=== PATIENT | female | born 1940 | race Caucasian/White ===

== ENCOUNTER → 2018-02-24 | Outpatient (CLI) | payer OTHER ==
--- NOTE | 2018-02-24 16:00 | 2DMMODE ---
[place] [address] 2 D/M-MODE ECHOCARDIOGRAM Name: SAMANTHAHARISH Richard Room: [facility]#: [id number] Admission: 02/24/18 Attend Phys: Sunitha Mendenhall NP [place] Discharge: Date of : 42 Date of Service: 02/24/18 1600 Report #: [id number] THIS REPORT FOR: //name// APPROVED REPORT Study performed: 02/24/2018 14:15:59 EXAM: Comprehensive 2D, Doppler, and color-flow Echocardiogram Patient Location: Out-Patient Status: routine BSA: 1.71 HR: 72 bpm BP: 122/70 mmHg Other Information Study Quality: Fair Technically limited study due to Breast Implants. Indications Murmur 2D Dimensions IVSd: 11.97 (7-11mm) LVOT Diam: 20.34 (18-24mm) LVDd: 38.95 mm PWd: 10.30 (7-11mm) Ascending Ao: 32.33 (22-36mm) LVDs: 30.81 (25-40mm) Aortic Root: 25.40 mm Volumes Left Atrial Volume (Systole) LA ESV Index: 17.40 mL/m2 Aortic Valve AoV Peak Richie.: 1.69 m/s AO Peak Gr.: 11.38 mmHg LVOT Max P.54 mmHg AO Mean Gr.: 5.90 mmHg LVOT Mean P.73 mmHg LVOT Max V: 0.94 m/s AO V2 VTI: 36.14 cm LVOT Mean V: 0.61 m/s MODESTA (VTI): 1.96 cm2 LVOT V1 VTI: 21.81 cm Mitral Valve E/A Ratio: 0.78 MV Decel. Time: 240.35 [place] [address] 2 D/M-MODE ECHOCARDIOGRAM Name: HARISH SINGH Room: [facility]#: [id number] Admission: 02/24/18 Attend Phys: Sunitha Mendenhall NP [place] Discharge: Date of : 42 Date of Service: 02/24/18 1600 Report #: [id number] MV E Max Richie.: 0.72 m/s MV PHT: 69.70 ms MVA (PHT): 3.16 cm2 TDI E/Lateral E': 8.00 E/Medial E': 8.00 Medial E' Richie.: 0.09 m/s Lateral E' Richie.: 0.09 m/s Pulmonary Valve PV Peak Richie.: 1.02 m/s PV Peak Gr.: 4.19 mmHg Tricuspid Valve RAP Estimate: 5.00 mmHg TR Peak Gr.: 18.02 mmHg RVSP: 23.02 mmHg PA Pressure: 23.02 mmHg Left Ventricle The left ventricle is normal size. There is normal LV segmental wall motion. There is normal left ventricular wall thickness. Left ventricular systolic function is normal. The left ventricular ejection fraction is within the normal range. LVEF is 55-60%. Grade I - abnormal relaxation pattern. Right Ventricle The right ventricle is normal size. The right ventricular systolic function is normal. Atria The left atrium size is normal. The right atrium size is normal. Aortic Valve Aortic valve is mildly calcified. No aortic regurgitation is present. There is no aortic valvular stenosis. Mitral Valve The mitral valve is normal in structure. There is no mitral valve regurgitation noted. No evidence of mitral valve stenosis. Tricuspid Valve The tricuspid valve is normal in structure. Mild tricuspid regurgitation. estimated pa pressure 30 mm Hg Pulmonic Valve The pulmonary valve is normal in structure[place] [address] 2 D/M-MODE ECHOCARDIOGRAM Name: HARISH SINGH Room: [facility]#: [id number] Admission: 02/24/18 Attend Phys: Sunitha Mendenhall NP [place] Discharge: Date of : 42 Date of Service: 02/24/18 1600 Report #: [id number] regurgitation. Great Vessels The aortic root is normal in size. IVC is normal in size and collapses >50% with inspiration. Pericardium There is no pericardial effusion. <Conclusion> LVEF is 55-60%. Aortic valve is mildly calcified. <ELECTRONICALLY SIGNED> By: Bryce Tilley MD, FACC 02/24/18 1600 1600 1600 Bryce Tilley MD, FACC /INF
== END ==
LOC: M.CRD 14:00
DX: I07.1 Rheumatic tricuspid insufficiency (principal); I35.8 Other nonrheumatic aortic valve disorders

== ENCOUNTER 2020-03-24 10:59 | Emergency (ER) | payer OTHER ==
[~2020-03-24] VITALS: Ht 154.9 cm; Wt 68.0 kg
[2020-03-24] MEDS ORDERED: FEMARA2.5 MG PO (11:10)
[2020-03-24] MEDS ORDERED: LIPITOR10 MG PO (11:11)
[2020-03-24] MEDS ORDERED: IBRANCE125 M1 PO (11:11)
[2020-03-24] MEDS ORDERED: TESSALON PERLE100 M1 PO (12:08)
[2020-03-24 12:19] VITALS: BP 130/62
== END 2020-03-24 12:21 | disposition home or self-care (01) ==
LOC: M.ERS 10:59
DX: R05 Cough (principal)

== ENCOUNTER → 2020-04-04 | Outpatient (CLI) | payer OTHER ==
[~2020-04-04] MED LIST: FEMARA2.5 MG PO; IBRANCE125 M1 PO; LIPITOR10 MG PO; TESSALON PERLE100 M1 PO
== END ==
LOC: M.ULTRA 14:00
PROVIDERS: ATTEND Family Medicine
DX: R79.89 Other specified abnormal findings of blood chemistry (principal)